=== PATIENT | female | born 1945 | race Caucasian/White ===

== ENCOUNTER 2017-02-16 07:10 | Day surgery (SDC) | payer OTHER ==
[~2017-02-16] VITALS: Ht 157.5 cm; Wt 69.4 kg
[~2017-02-16 07:10] MED LIST: CEFAZOLIN 1 GM IVPB PREMIX 50 ML IV ONE
[2017-02-16] MEDS ORDERED: FAMO20TA98 PO (09:40)
[2017-02-16] MEDS ORDERED: IBUP-1969 PO (09:40)
[2017-02-16] MEDS ORDERED: HUM10VIA7 SUBCUT (09:40)
[2017-02-16] MEDS ORDERED: BENA20TA2 PO (09:40)
[2017-02-16] MEDS ORDERED: HYDR-1189 PO (09:40)
[2017-02-16] MEDS ORDERED: CARV6.2554 PO (09:40)
[2017-02-16] MEDS ORDERED: GABA-529 PO (09:40)
[2017-02-16] MEDS ORDERED: BUPR200T2 PO (09:40)
[2017-02-16] MEDS ORDERED: SIMV10TA2 PO (09:40)
[2017-02-16] MEDS ORDERED: PLA200 PO (09:40)
[2017-02-16] MEDS ORDERED: ROCURONIUM BROMIDE 10 MG/ML (ZEMURON) IV ONE (10:25)
[2017-02-16] MEDS ORDERED: ONDANSETRON HCL 4 MG/2 ML VIAL IVP ONE (10:25)
[2017-02-16] MEDS ORDERED: CEFAZOLIN 1 GM IVPB PREMIX 50 ML IV ONE (10:25)
[2017-02-16] MEDS ORDERED: LR 1,000 ML IV.SOLN IV ONE (10:25)
[2017-02-16] MEDS ORDERED: fentaNYL CITRATE 250 MCG/5 ML AMP IV ONE (10:25)
[2017-02-16] MEDS ORDERED: SEVOFLURANE 15 MIN GAS INH ONE (10:25)
[2017-02-16] MEDS ORDERED: PROPOFOL 200MG/ 20ML VIAL (DIPRIVAN) IV ONE (10:25)
[2017-02-16] MEDS ORDERED: KETOROLAC TROMETHAMINE 15 MG VIAL IVP ONE (10:25)
[2017-02-16] MEDS ORDERED: MIDAZOLAM HCL 5 MG/5 ML VIAL IVP ONE (10:25)
[2017-02-16] MEDS ORDERED: DEXAMETHASONE SOD PHOSPHATE 4 MG/ML VIAL IVP ONE (10:25)
[2017-02-16] MEDS ORDERED: KETAMINE HCL 500 MG/10 ML VIAL IVP ONE (10:25)
[2017-02-16] MEDS ORDERED: LR 1,000 ML IV SCH (10:47)
[2017-02-16] MEDS ORDERED: MEPERIDINE HCL/PF 25 MG/ML DISP.SYRIN IVP PRN (11:00)
[2017-02-16] MEDS ORDERED: HYDROmorphone 2 MG/ML VIAL IVP PRN ×2 (11:00)
[2017-02-16] MEDS ORDERED: HYDROmorphone 1 MG INJ. 1 MG/ML AMPUL IVP PRN ×2 (11:00→11:45)
[2017-02-16] MEDS ORDERED: ACETAMINOPHEN 325 MG TABLET PO PRN (11:45)
[2017-02-16] MEDS ORDERED: ONDANSETRON HCL 4 MG/2 ML VIAL IVP PRN (11:45)
[2017-02-16] MEDS ORDERED: HYDROcodone/ACETAMIN 5-325 MG TAB (NORCO/ VICODIN) PO PRN (11:45)
[2017-02-16] MEDS ORDERED: HYDROmorphone 1 MG INJ. 1 MG/ML AMPUL ONE (12:22)
[2017-02-16 12:55] VITALS: BP_SYST 115
[2017-02-16 14:41] VITALS: BP_SYST 115
[2017-02-16] MEDS: DIPHENHYDRAMINE HCL 25 MG CAPSULE PO PRN (14:41)
[2017-02-16] MEDS: CEFAZOLIN 1 GM IVPB PREMIX 50 ML IV SCH (17:22)
[2017-02-16] MEDS: D5/0.45 NS 1,000 ML IV SCH (17:34)
[2017-02-16 19:45] VITALS: BP_SYST 112
[2017-02-16] MEDS: FAMOTIDINE PF 20 MG/2 ML VIAL IVP SCH (20:17)
[2017-02-16] MEDS: HYDROcodone/ACETAMIN 5-325 MG TAB (NORCO/ VICODIN) PO PRN (20:18)
[2017-02-17] MEDS: D5/0.45 NS 1,000 ML IV SCH
[2017-02-17] MEDS: CEFAZOLIN 1 GM IVPB PREMIX 50 ML IV SCH (00:03)
[2017-02-17] MEDS: INSULIN REGULAR, HUMAN 100 UNITS/ML, 10 ML VIAL (novoLIN R) SUBCUT PRN ×2 (00:05→06:53)
[2017-02-17 00:53] VITALS: BP_SYST 97
[2017-02-17 04:57] VITALS: BP_SYST 104
[2017-02-17] MEDS: DIPHENHYDRAMINE HCL 25 MG CAPSULE PO PRN (06:54)
[2017-02-17] MEDS: HYDROcodone/ACETAMIN 5-325 MG TAB (NORCO/ VICODIN) PO PRN (06:55)
[2017-02-17 08:26] VITALS: BP_SYST 106
[2017-02-17] MEDS: FAMOTIDINE PF 20 MG/2 ML VIAL IVP SCH (09:03)
[2017-02-17 10:05] VITALS: BP_SYST 101
== END 2017-02-17 11:05 | disposition home or self-care (01) ==
LOC: SDS 07:10 → SMU 07:11 → EDSTATUS 09:00 → SMU 14:31 → SDS 02-17 11:05
PROVIDERS: ATTEND Colon & Rectal Surgery
DX: D05.11 Intraductal carcinoma in situ of right breast (principal); I10 Essential (primary) hypertension; J44.9 Chronic obstructive pulmonary disease, unspecified; E11.9 Type 2 diabetes mellitus without complications; E78.5 Hyperlipidemia, unspecified; M54.16 Radiculopathy, lumbar region; F32.1 Major depressive disorder, single episode, moderate; M47.11 Other spondylosis with myelopathy, occipito-atlanto-axial region; I20.8 Other forms of angina pectoris; M32.9 Systemic lupus erythematosus, unspecified; K21.9 Gastro-esophageal reflux disease without esophagitis
CPT/HCPCS: 19303; 82962; 87081; 88307; 94010; J0690; J1100; J1170; J1885; J2250; J2405; J2704; J3010; J3490 ×2; J7030; J7120; Q0163 ×2